=== PATIENT | male | born 1930 | race Caucasian/White ===

== ENCOUNTER 2021-03-23 09:36 | Emergency (ER) | payer MEDICARE, BC ==
[~2021-03-23] VITALS: Wt 95.1 kg
[2021-03-23 10:31] LABS: BASO # 0.02 K/mm3 (0.02-0.10); EOS # 0.07 K/mm3 (0.04-0.40); EOS % 1.3 % (0.0-4.0); HEMATOCRIT 42.3 % (42.0-52.0); HEMOGLOBIN 15.7 g/dL (13.5-18.0); LYMPH# 1.55 K/mm3 (1.50-4.00); MEAN CELL VOLUME 96 fl (78-100); MEAN CORPUSCULAR HEMOGLOBIN 35 pg (27-31); MEAN CORPUSCULAR HGB CONC 37 g/dL (33-37); MEAN PLATELET VOLUME 12.8 fl (7.4-10.4); MONO # 0.47 K/mm3 (0.20-0.80); NEU # 3.09 K/mm3 (1.40-6.50); PLATELET COUNT 118 K/mm3 (130-400); RED BLOOD COUNT 4.43 M/mm3 (4.20-5.60); RED CELL DISTRIBUTION WIDTH 14.2 % (11.5-14.5); WHITE BLOOD COUNT 5.2 K/mm3 (4.8-10.8)
[2021-03-23 10:38] LABS: ALBUMIN 3.4 g/dL (3.4-4.8)
[2021-03-23 10:39] LABS: POTASSIUM 4.1 mmol/L (3.5-5.1); SODIUM 144 mmol/L (136-145)
[2021-03-23 10:41] LABS: GLUCOSE 122 mg/dL (75-110)
[2021-03-23 10:42] LABS: CARBON DIOXIDE 26 mmol/L (23-31)
[2021-03-23 10:43] LABS: TOTAL BILIRUBIN 0.7 mg/dL (0.2-1.2)
[2021-03-23 10:46] LABS: AST-SGOT 20 U/L (5-34)
[2021-03-23 10:48] LABS: ALT/SGPT 27 U/L (0-55)
[2021-03-23 11:03] LABS: TROPONIN-I < 0.03 ng/mL (<0.030)
[2021-03-23] MEDS ORDERED: DULOXETINE30 MG PO (11:21)
[2021-03-23] MEDS ORDERED: ASPIRIN E.C. 8181 MG PO (11:21)
[2021-03-23] MEDS ORDERED: FARXIGA5 MG PO (11:22)
[2021-03-23] MEDS ORDERED: FEOSOL325 MG PO (11:22)
[2021-03-23] MEDS ORDERED: FLOMAX0.4 MG PO (11:22)
[2021-03-23] MEDS ORDERED: LANTUS PEN100 U/ML SQ (11:23)
[2021-03-23] MEDS ORDERED: FUROSEMIDE20 MG PO (11:23)
[2021-03-23] MEDS ORDERED: GABAPENTIN100 MG PO (11:23)
[2021-03-23] MEDS ORDERED: LIPITOR 10M10 MG/TAB PO (11:24)
[2021-03-23] MEDS ORDERED: LEVOTHYROXINE0.05 MG PO (11:24)
[2021-03-23] MEDS ORDERED: COZAAR 50MG50 MG/TAB PO (11:24)
[2021-03-23] MEDS ORDERED: NAMENDA XR28 MG PO (11:25)
[2021-03-23] MEDS ORDERED: NYSTATIN15 G1 TOP (11:26)
[2021-03-23] MEDS ORDERED: NOVOLOG 100U100 U/ML SQ (11:26)
[2021-03-23] MEDS ORDERED: BIOFREEZE COLD118 ML TOP (11:27)
[2021-03-23] MEDS ORDERED: MIRALAX17 GM PO (11:28)
[2021-03-23] MEDS ORDERED: MUCINEX DM 30 M1 TE1 PO (11:28)
[2021-03-23] MEDS ORDERED: COUGH DM30 MG/5 ML PO (11:28)
[2021-03-23] MEDS ORDERED: TYLENOL 325MG325 MG PO (11:29)
[2021-03-23 11:40] LABS: D-DIMER 0.78 mg/L FEU (0.15-0.50)
[2021-03-23 11:54] LABS: URINE APPEARANCE HAZY; URINE COLOR YELLOW; URINE PROTEIN(semi-quant) NEGATIVE (NEGATIVE)
[2021-03-23 11:55] LABS: URINE BILIRUBIN NEGATIVE (NEGATIVE); URINE BLOOD TRACE (NEGATIVE); URINE KETONE NEGATIVE (NEGATIVE); URINE LEUKOCYTE ESTERASE TRACE (NEGATIVE); URINE MUCUS PRESENT (NOT PRESENT); URINE NITRATE NEGATIVE (NEGATIVE); URINE UROBILINOGEN NORMAL (NORMAL)
[2021-03-23 14:37] VITALS: BP 156/82
== END 2021-03-23 14:45 | disposition home or self-care (01) ==
LOC: ED 09:36
PROVIDERS: Physician Assistant
DX: E86.0 Dehydration (principal); R53.81 Other malaise; F03.90 Unspecified dementia, unspecified severity, without behavioral disturbance, psychotic disturbance, mood disturbance, and anxiety; E03.9 Hypothyroidism, unspecified; I10 Essential (primary) hypertension; E78.5 Hyperlipidemia, unspecified; F32.A Depression, unspecified; E11.40 Type 2 diabetes mellitus with diabetic neuropathy, unspecified; Z20.822 Contact with and (suspected) exposure to COVID-19; Z79.4 Long term (current) use of insulin; Z79.890 Hormone replacement therapy; Z79.899 Other long term (current) drug therapy
CPT/HCPCS: A4340; J7030; Q9967